=== PATIENT | female | born 1955 | race Caucasian/White ===

== ENCOUNTER 2021-08-14 06:44 | Inpatient (IN) ==
[~2021-08-14 06:44] MED LIST: LACTATED RINGERS 1,000 ML IV SCH; VANCOMYCIN INJ 1,000 MG in SODIUM CHLORIDE 0.9% 250 ML IV ONE
[2021-08-14] MEDS ORDERED: LIDOCAINE 2% 5 ML VIAL ONE (10:10)
[2021-08-14] MEDS ORDERED: propofoL 200 MG/20 ML VIAL IV ONE (10:10)
[2021-08-14] MEDS ORDERED: fentaNYL 100 MCG/2 ML VIAL ONE ×2 (10:11→12:27)
[2021-08-14] MEDS ORDERED: MIDAZOLAM 2 MG/2 ML VIAL ONE (10:11)
[2021-08-14] MEDS ORDERED: HEPARIN 5,000 UNIT/1 ML VIAL ONE (10:21)
[2021-08-14] MEDS ORDERED: HYDROCORTISONE 100 MG VIAL ONE (11:13)
[2021-08-14] MEDS ORDERED: HEPARIN 10,000 UNIT/10 ML VIAL ONE (11:56)
[2021-08-14] MEDS ORDERED: PHENYLEPHRINE 10 MG/1 ML VIAL IV ONE (11:56)
[2021-08-14] MEDS ORDERED: SEVOFLURANE 1 UNIT/15 MINUTE INH ONE ×6 (11:57→13:34)
[2021-08-14] MEDS ORDERED: HYDROmorphone 1 MG/1 ML SYRINGE IV PRN ×2 (13:26→13:37)
[2021-08-14] MEDS ORDERED: ONDANSETRON 4 MG/2 ML VIAL IV PRN ×2 (13:26→13:37)
[2021-08-14] MEDS ORDERED: MEPERIDINE 25 MG/1 ML VIAL IV PRN (13:37)
[2021-08-14] MEDS ORDERED: diphenhydrAMINE 50 MG/1 ML VIAL IV PRN (13:37)
[2021-08-14 13:53] LABS: Hematocrit 36.6 VOL% (35.7-47.0); Hemoglobin 11.8 GM/DL (12.0-16.0)
[2021-08-14] MEDS ORDERED: PNEUMOCOCCAL VACCINE (13 VALENT) 0.5 ML SYRINGE IM ONE (14:40)
[2021-08-14] MEDS: GABAPENTIN 300 MG CAPSULE PO SCH ×2 (14:48→21:13)
[2021-08-14] MEDS: LACTATED RINGERS 1,000 ML IV SCH ×2 (14:48→21:15)
[2021-08-15] MEDS: LACTATED RINGERS 1,000 ML IV SCH (05:21)
[2021-08-15 05:35] LABS: Basophils % 0.4 % (0.0-0.8); Eosinophils # 0.1 10*3/uL (0.0-0.87); Eosinophils % 0.9 % (0.00-10.9); Hematocrit 31.2 VOL% (35.7-47.0); Hemoglobin 9.8 GM/DL (12.0-16.0); Immature Granulocytes % 0.9 %; Immature Granulocytes Absolute 0.07 #; Lymphocytes # 1.3 10*3/uL (1.4-4.0); Lymphocytes % 15.6 % (21.3-54.2); Mean Corpuscular HGB Conc 31.4 GM/DL (32-36); Mean Corpuscular Volume 98.4 FL (87-102); Mean Platelet Volume 9.8 FL (9.6-12.0); Monocytes # 0.6 10*3/uL (0.11-0.8); Monocytes % 7.7 % (1.7-12.7); Neutrophils % 74.5 % (38.7-73.9); Platelet Count 164 T/CUMM (130-400); Red Blood Count 3.17 MC/CUMM (3.8-5.5); Red Cell Distribution Width 14.2 % (9.3-17.3); White Blood Count 8.2 T/CUMM (4-12)
[2021-08-15 06:08] LABS: Lymphocytes 17 % (20-55); Platelet Estimate Normal; Total Cells Counted 100
[2021-08-15 06:10] LABS: Calcium 8.4 MG/DL (8.5-10.1); Osmolality,Calculated 281.3 MOS/KG (273-304); Potassium 3.2 MMOL/L (3.5-5.1)
[2021-08-15 07:27] VITALS: BP 120/59
[2021-08-15] MEDS: GABAPENTIN 300 MG CAPSULE PO SCH (08:30)
[2021-08-15] MEDS ORDERED: CHOLECALCIFEROL 5,000 UNIT TABLET PO SCH (09:00)
[2021-08-15] MEDS ORDERED: ASPIRIN EC 81 MG TABLET PO SCH (09:00)
[2021-08-15] MEDS ORDERED: ROSUVASTATIN 20 MG TABLET PO SCH (09:00)
[2021-08-15] MEDS ORDERED: CLOPIDOGREL 75 MG TABLET PO SCH ×2 (09:00)
[2021-08-15] MEDS ORDERED: TOFACITINIB 11 MG PO SCH (09:00)
[2021-08-15] MEDS ORDERED: lisinopriL 20 MG TABLET PO SCH (09:00)
[2021-08-15] MEDS ORDERED: predniSONE 5 MG TABLET PO SCH (09:00)
[2021-08-15] MEDS ORDERED: ASPIRIN CHEW 81 MG TABLET PO SCH (09:00)
== END 2021-08-15 10:50 | disposition home or self-care (01) | DRG 254 ==
LOC: N.OR 06:44 → N.SDSINP 06:44 → EDSTATUS 10:00 → N.3E 13:26
PROVIDERS: ADMIT Surgery; ATTEND Surgery

== ENCOUNTER 2021-08-25 09:45 | Inpatient (IN) ==
[2021-08-25] MEDS ORDERED: ONDANSETRON 4 MG/2 ML VIAL IV STA (11:46)
[2021-08-25] MEDS ORDERED: MORPHINE 2 MG/1 ML SYRINGE IV STA (11:47)
[2021-08-25] MEDS ORDERED: ENOXAPARIN 60 MG/0.6 ML SYRINGE SUBCUT STA (12:04)
[2021-08-25 12:33] LABS: Basophils % 0.2 % (0.0-0.8); Eosinophils # 0.1 10*3/uL (0.0-0.87); Eosinophils % 0.9 % (0.00-10.9); Hemoglobin 10.6 GM/DL (12.0-16.0); Immature Granulocytes % 1.4 %; Immature Granulocytes Absolute 0.22 #; Lymphocytes # 2.4 10*3/uL (1.4-4.0); Lymphocytes % 15.5 % (21.3-54.2); Mean Corpuscular HGB Conc 32.1 GM/DL (32-36); Mean Corpuscular Volume 95.9 FL (87-102); Mean Platelet Volume 10.6 FL (9.6-12.0); Monocytes # 1.1 10*3/uL (0.11-0.8); NRBC # 0.11 10*3/uL; Platelet Count 200 T/CUMM (130-400); Red Blood Count 3.44 MC/CUMM (3.8-5.5); Red Cell Distribution Width 14.9 % (9.3-17.3); White Blood Count 15.2 T/CUMM (4-12)
[2021-08-25 12:44] LABS: INR 1.2; PT Patient Result 12.6 SECS (10.5-12.0)
[2021-08-25] MEDS ORDERED: HYDROmorphone 1 MG/1 ML SYRINGE IV PRN (13:00)
[2021-08-25] MEDS ORDERED: ACETAMINOPHEN 325 MG TABLET PO PRN (13:00)
[2021-08-25] MEDS ORDERED: ONDANSETRON 4 MG/2 ML VIAL IV PRN (13:00)
[2021-08-25] MEDS ORDERED: oxyCODONE/ACETAMINOPHEN 5-325 MG TABLET PO PRN (13:00)
[2021-08-25] MEDS ORDERED: SODIUM CHLORIDE 0.9% 1,000 ML IV STA (13:05)
[2021-08-25 13:15] LABS: Albumin 2.8 G/DL (3.4-5.0); Bilirubin,Total 0.8 MG/DL (0.20-1.00); Potassium 2.6 MMOL/L (3.5-5.1); Total Protein 7.1 G/DL (6.4-8.2)
[2021-08-25] MEDS ORDERED: POTASSIUM CHLORIDE 20 MEQ TABLET PO STA (13:31)
[2021-08-25] MEDS ORDERED: LACTATED RINGERS 1,000 ML IV SCH (17:00)
[2021-08-25] MEDS: POTASSIUM CHLORIDE INJ 30 MEQ in LACTATED RINGERS 1,000 ML IV SCH (18:00)
[2021-08-25] MEDS: PIPERACILLIN/TAZOBACTAM 3,375 MG in SODIUM CHLORIDE 0.9% 100 ML IV SCH (18:14)
[2021-08-25] MEDS: APIXABAN 5 MG TABLET PO SCH (20:06)
[2021-08-25] MEDS: oxyCODONE/ACETAMINOPHEN 5-325 MG TABLET PO PRN (20:07)
[2021-08-26] MEDS: PIPERACILLIN/TAZOBACTAM 3,375 MG in SODIUM CHLORIDE 0.9% 100 ML IV SCH ×3 (03:21→17:25)
[2021-08-26 05:12] LABS: Basophils # 0.1 10*3/uL (0.0-0.2); Basophils % 0.4 % (0.0-0.8); Eosinophils # 0.1 10*3/uL (0.0-0.87); Hematocrit 30.9 VOL% (35.7-47.0); Hemoglobin 9.5 GM/DL (12.0-16.0); Immature Granulocytes % 1.1 %; Immature Granulocytes Absolute 0.15 #; Lymphocytes # 1.6 10*3/uL (1.4-4.0); Lymphocytes % 11.6 % (21.3-54.2); Mean Corpuscular HGB Conc 30.7 GM/DL (32-36); Mean Platelet Volume 10.3 FL (9.6-12.0); Monocytes # 1.1 10*3/uL (0.11-0.8); NRBC # 0.05 10*3/uL; Neutrophils % 77.9 % (38.7-73.9); Platelet Count 196 T/CUMM (130-400); Red Blood Count 3.12 MC/CUMM (3.8-5.5); Red Cell Distribution Width 15.2 % (9.3-17.3); White Blood Count 13.9 T/CUMM (4-12)
[2021-08-26 05:31] LABS: Calcium 8.6 MG/DL (8.5-10.1); Osmolality,Calculated 277.7 MOS/KG (273-304); Potassium 3.9 MMOL/L (3.5-5.1)
[2021-08-26] MEDS: oxyCODONE/ACETAMINOPHEN 5-325 MG TABLET PO PRN ×4 (06:31→18:33)
[2021-08-26] MEDS: CHOLECALCIFEROL 5,000 UNIT TABLET PO SCH (08:43)
[2021-08-26] MEDS: POTASSIUM CHLORIDE INJ 30 MEQ in LACTATED RINGERS 1,000 ML IV SCH ×2 (08:43→20:19)
[2021-08-26] MEDS: APIXABAN 5 MG TABLET PO SCH ×2 (08:43→20:16)
[2021-08-26] MEDS: predniSONE 5 MG TABLET PO SCH (08:43)
[2021-08-26] MEDS: ASPIRIN EC 81 MG TABLET PO SCH (08:43)
[2021-08-26] MEDS: GABAPENTIN 300 MG CAPSULE PO SCH ×3 (08:43→20:16)
[2021-08-26] MEDS: ROSUVASTATIN 20 MG TABLET PO SCH (08:43)
[2021-08-26] MEDS: PANTOPRAZOLE 40 MG TABLET PO SCH (08:44)
[2021-08-26] MEDS: TOFACITINIB 11 MG PO SCH (08:45)
[2021-08-26] MEDS: HYDROmorphone 2 MG/1 ML VIAL IV PRN ×2 (11:09→20:16)
[2021-08-26] MEDS ORDERED: KETOROLAC 15 MG/1 ML VIAL IV ONE (12:14)
[2021-08-26] MEDS ORDERED: GLUCAGON 1 MG VIAL IM PRN (14:06)
[2021-08-26] MEDS ORDERED: DEXTROSE 10% 250 ML BAG IV PRN (14:06)
[2021-08-26] MEDS: MENTHOL/ZINC OXIDE OINT 71 GM JAR TOP SCH ×2 (15:32→20:18)
[2021-08-26] MEDS: INSULIN LISPRO 100 UNIT/ML SUBCUT SCH ×2 (17:25→20:28)
[2021-08-27] MEDS: PIPERACILLIN/TAZOBACTAM 3,375 MG in SODIUM CHLORIDE 0.9% 100 ML IV SCH ×3 (02:07→17:01)
[2021-08-27] MEDS: POTASSIUM CHLORIDE INJ 30 MEQ in LACTATED RINGERS 1,000 ML IV SCH (02:08)
[2021-08-27] MEDS: HYDROmorphone 2 MG/1 ML VIAL IV PRN ×2 (04:37→21:04)
[2021-08-27 05:58] LABS: Basophils % 0.3 % (0.0-0.8); Eosinophils # 0.1 10*3/uL (0.0-0.87); Eosinophils % 1.2 % (0.00-10.9); Hematocrit 26.4 VOL% (35.7-47.0); Hemoglobin 8.1 GM/DL (12.0-16.0); Immature Granulocytes % 1.1 %; Immature Granulocytes Absolute 0.13 #; Lymphocytes # 1.4 10*3/uL (1.4-4.0); Lymphocytes % 12.3 % (21.3-54.2); Mean Corpuscular HGB Conc 30.7 GM/DL (32-36); Mean Corpuscular Volume 98.9 FL (87-102); Monocytes # 0.9 10*3/uL (0.11-0.8); Monocytes % 7.7 % (1.7-12.7); NRBC # 0.02 10*3/uL; Neutrophils % 77.4 % (38.7-73.9); Platelet Count 197 T/CUMM (130-400); Red Blood Count 2.67 MC/CUMM (3.8-5.5); Red Cell Distribution Width 15.1 % (9.3-17.3); White Blood Count 11.6 T/CUMM (4-12)
[2021-08-27 06:21] LABS: Eosinophils 1 % (0-10); Hypochromia Slight; Lymphocytes 11 % (20-55); Microcytosis Slight; Nucleated Red Blood Cells 1 (0-5); Platelet Estimate Adequate; Total Cells Counted 100
[2021-08-27 06:25] LABS: Albumin 2.2 G/DL (3.4-5.0); Bilirubin,Total 0.6 MG/DL (0.20-1.00); Calcium 8.6 MG/DL (8.5-10.1); Osmolality,Calculated 274.7 MOS/KG (273-304); Potassium 3.7 MMOL/L (3.5-5.1)
[2021-08-27] MEDS: INSULIN LISPRO 100 UNIT/ML SUBCUT SCH ×3 (08:55→16:59)
[2021-08-27] MEDS: oxyCODONE/ACETAMINOPHEN 5-325 MG TABLET PO PRN ×4 (09:48→23:33)
[2021-08-27] MEDS: predniSONE 5 MG TABLET PO SCH (09:48)
[2021-08-27] MEDS: GABAPENTIN 300 MG CAPSULE PO SCH ×3 (09:48→21:05)
[2021-08-27] MEDS: ROSUVASTATIN 20 MG TABLET PO SCH (09:48)
[2021-08-27] MEDS: ASPIRIN EC 81 MG TABLET PO SCH (09:48)
[2021-08-27] MEDS: PANTOPRAZOLE 40 MG TABLET PO SCH (09:48)
[2021-08-27] MEDS: CHOLECALCIFEROL 5,000 UNIT TABLET PO SCH (09:49)
[2021-08-27] MEDS: MENTHOL/ZINC OXIDE OINT 71 GM JAR TOP SCH ×2 (09:49→21:05)
[2021-08-27] MEDS: APIXABAN 5 MG TABLET PO SCH (09:49)
[2021-08-27] MEDS: TOFACITINIB 11 MG PO SCH (09:50)
[2021-08-27] MEDS: NICOTINE 21 MG/24 HR PATCH TRANSDERM SCH (10:48)
[2021-08-27] MEDS ORDERED: INSULIN GLARGINE 100 UNIT/ML SUBCUT SCH (21:00)
[2021-08-27] MEDS: ENOXAPARIN 60 MG/0.6 ML SYRINGE SUBCUT SCH (21:05)
[2021-08-28] MEDS: PIPERACILLIN/TAZOBACTAM 3,375 MG in SODIUM CHLORIDE 0.9% 100 ML IV SCH ×3 (01:55→17:13)
[2021-08-28] MEDS: INSULIN LISPRO 100 UNIT/ML SUBCUT SCH ×5 (05:55→21:32)
[2021-08-28] MEDS: CHOLECALCIFEROL 5,000 UNIT TABLET PO SCH (08:46)
[2021-08-28] MEDS: oxyCODONE/ACETAMINOPHEN 5-325 MG TABLET PO PRN ×4 (08:46→21:30)
[2021-08-28] MEDS: ASPIRIN EC 81 MG TABLET PO SCH (08:46)
[2021-08-28] MEDS: PANTOPRAZOLE 40 MG TABLET PO SCH (08:46)
[2021-08-28] MEDS: GABAPENTIN 300 MG CAPSULE PO SCH ×3 (08:46→22:08)
[2021-08-28] MEDS: MENTHOL/ZINC OXIDE OINT 71 GM JAR TOP SCH ×2 (08:47→22:08)
[2021-08-28] MEDS: ENOXAPARIN 60 MG/0.6 ML SYRINGE SUBCUT SCH ×2 (08:47→22:08)
[2021-08-28] MEDS: predniSONE 5 MG TABLET PO SCH (08:47)
[2021-08-28] MEDS: ROSUVASTATIN 20 MG TABLET PO SCH (08:47)
[2021-08-28] MEDS: NICOTINE 21 MG/24 HR PATCH TRANSDERM SCH (08:48)
[2021-08-28 08:54] LABS: Calcium 8.4 MG/DL (8.5-10.1); Osmolality,Calculated 274.8 MOS/KG (273-304); Potassium 3.8 MMOL/L (3.5-5.1)
[2021-08-28] MEDS: TOFACITINIB 11 MG PO SCH (09:26)
[2021-08-29] MEDS: oxyCODONE/ACETAMINOPHEN 5-325 MG TABLET PO PRN (02:15)
[2021-08-29] MEDS: PIPERACILLIN/TAZOBACTAM 3,375 MG in SODIUM CHLORIDE 0.9% 100 ML IV SCH ×3 (02:18→20:30)
[2021-08-29] MEDS ORDERED: fentaNYL 100 MCG/2 ML VIAL ONE ×2 (07:50→09:22)
[2021-08-29] MEDS ORDERED: LIDOCAINE 2% 5 ML VIAL ONE (07:50)
[2021-08-29] MEDS ORDERED: propofoL 200 MG/20 ML VIAL IV ONE (07:50)
[2021-08-29] MEDS ORDERED: ONDANSETRON 4 MG/2 ML VIAL ONE (07:50)
[2021-08-29] MEDS ORDERED: MIDAZOLAM 2 MG/2 ML VIAL ONE (07:51)
[2021-08-29 08:27] LABS: Basophils % 0.3 % (0.0-0.8); Eosinophils # 0.1 10*3/uL (0.0-0.87); Eosinophils % 1.3 % (0.00-10.9); Hematocrit 23.4 VOL% (35.7-47.0); Hemoglobin 7.3 GM/DL (12.0-16.0); Immature Granulocytes % 1.2 %; Immature Granulocytes Absolute 0.09 #; Lymphocytes # 1.4 10*3/uL (1.4-4.0); Lymphocytes % 17.6 % (21.3-54.2); Mean Corpuscular HGB Conc 31.2 GM/DL (32-36); Mean Corpuscular Volume 98.7 FL (87-102); Mean Platelet Volume 9.6 FL (9.6-12.0); Monocytes # 0.7 10*3/uL (0.11-0.8); Monocytes % 8.5 % (1.7-12.7); NRBC # 0.03 10*3/uL; Neutrophils % 71.1 % (38.7-73.9); Platelet Count 261 T/CUMM (130-400); Red Blood Count 2.37 MC/CUMM (3.8-5.5); Red Cell Distribution Width 15.3 % (9.3-17.3); White Blood Count 7.7 T/CUMM (4-12)
[2021-08-29] MEDS ORDERED: LACTATED RINGERS 1,000 ML IV SCH (08:30)
[2021-08-29] MEDS ORDERED: VANCOMYCIN 500 MG VIAL ONE (08:38)
[2021-08-29] MEDS ORDERED: BUPIVACAINE 0.5% 50 ML VIAL ONE (08:38)
[2021-08-29 08:47] LABS: Calcium 8.7 MG/DL (8.5-10.1); Osmolality,Calculated 280.3 MOS/KG (273-304); Potassium 3.8 MMOL/L (3.5-5.1)
[2021-08-29] MEDS ORDERED: SEVOFLURANE 1 UNIT/15 MINUTE INH ONE (10:09)
[2021-08-29] MEDS ORDERED: KETOROLAC 30 MG/1 ML VIAL ONE (10:10)
[2021-08-29] MEDS ORDERED: HYDROCORTISONE 100 MG VIAL ONE (10:11)
[2021-08-29] MEDS ORDERED: HYDROmorphone 1 MG/1 ML SYRINGE IV PRN (10:11)
[2021-08-29] MEDS: MENTHOL/ZINC OXIDE OINT 71 GM JAR TOP SCH ×2 (10:13→20:31)
[2021-08-29] MEDS: INSULIN LISPRO 100 UNIT/ML SUBCUT SCH ×4 (10:13→20:24)
[2021-08-29] MEDS: GABAPENTIN 300 MG CAPSULE PO SCH ×3 (10:13→20:23)
[2021-08-29] MEDS ORDERED: ONDANSETRON 4 MG/2 ML VIAL IV PRN (10:39)
[2021-08-29] MEDS: HYDROmorphone 1 MG/1 ML SYRINGE IV PRN ×3 (10:43→20:29)
[2021-08-29 11:49] LABS: Basophils % 0.4 % (0.0-0.8); Eosinophils # 0.1 10*3/uL (0.0-0.87); Eosinophils % 0.8 % (0.00-10.9); Hematocrit 25.2 VOL% (35.7-47.0); Hemoglobin 7.8 GM/DL (12.0-16.0); Immature Granulocytes % 1.4 %; Immature Granulocytes Absolute 0.11 #; Lymphocytes # 0.8 10*3/uL (1.4-4.0); Mean Corpuscular Volume 99.2 FL (87-102); Mean Platelet Volume 9.5 FL (9.6-12.0); Monocytes # 0.6 10*3/uL (0.11-0.8); Monocytes % 7.1 % (1.7-12.7); NRBC # 0.04 10*3/uL; Neutrophils % 80.3 % (38.7-73.9); Platelet Count 259 T/CUMM (130-400); Red Blood Count 2.54 MC/CUMM (3.8-5.5); Red Cell Distribution Width 15.1 % (9.3-17.3); White Blood Count 7.7 T/CUMM (4-12)
[2021-08-29 12:26] LABS: Band Neutrophils 5 % (0-10); Eosinophils 1 % (0-10); Lymphocytes 10 % (20-55); Platelet Estimate Adequate; Total Cells Counted 100
[2021-08-29] MEDS: ROSUVASTATIN 20 MG TABLET PO SCH (12:53)
[2021-08-29] MEDS: ASPIRIN EC 81 MG TABLET PO SCH (12:53)
[2021-08-29] MEDS: predniSONE 5 MG TABLET PO SCH (12:53)
[2021-08-29] MEDS: NICOTINE 21 MG/24 HR PATCH TRANSDERM SCH (12:53)
[2021-08-29] MEDS: PANTOPRAZOLE 40 MG TABLET PO SCH (12:54)
[2021-08-29] MEDS: CHOLECALCIFEROL 5,000 UNIT TABLET PO SCH (12:54)
[2021-08-29] MEDS: TOFACITINIB 11 MG PO SCH (12:54)
[2021-08-29] MEDS: KETOROLAC 10 MG TABLET PO SCH ×3 (13:04→23:33)
[2021-08-29] MEDS: INSULIN GLARGINE 100 UNIT/ML SUBCUT SCH (18:03)
[2021-08-30 05:21] LABS: Basophils % 0.1 % (0.0-0.8); Eosinophils # 0.1 10*3/uL (0.0-0.87); Eosinophils % 0.7 % (0.00-10.9); Hematocrit 19.7 VOL% (35.7-47.0); Immature Granulocytes % 1.3 %; Immature Granulocytes Absolute 0.09 #; Lymphocytes # 1.5 10*3/uL (1.4-4.0); Lymphocytes % 20.4 % (21.3-54.2); Mean Corpuscular HGB Conc 30.5 GM/DL (32-36); Mean Platelet Volume 9.5 FL (9.6-12.0); Monocytes # 0.6 10*3/uL (0.11-0.8); Monocytes % 7.7 % (1.7-12.7); NRBC # 0.05 10*3/uL; Neutrophils % 69.8 % (38.7-73.9); Platelet Count 245 T/CUMM (130-400); Red Blood Count 1.97 MC/CUMM (3.8-5.5); Red Cell Distribution Width 15.3 % (9.3-17.3); White Blood Count 7.1 T/CUMM (4-12)
[2021-08-30 05:35] LABS: Calcium 8.1 MG/DL (8.5-10.1); Osmolality,Calculated 278.3 MOS/KG (273-304); Potassium 3.6 MMOL/L (3.5-5.1)
[2021-08-30] MEDS: PIPERACILLIN/TAZOBACTAM 3,375 MG in SODIUM CHLORIDE 0.9% 100 ML IV SCH ×3 (05:35→21:20)
[2021-08-30] MEDS: KETOROLAC 10 MG TABLET PO SCH ×4 (05:35→23:37)
[2021-08-30 05:45] LABS: Hypochromia 2+; Platelet Estimate Normal
[2021-08-30] MEDS ORDERED: SODIUM CHLORIDE 0.9% 1,000 ML IV PRN (05:49)
[2021-08-30] MEDS: INSULIN LISPRO 100 UNIT/ML SUBCUT SCH ×4 (07:17→21:17)
[2021-08-30] MEDS: HYDROmorphone 1 MG/1 ML SYRINGE IV PRN ×2 (08:19→21:15)
[2021-08-30] MEDS: predniSONE 5 MG TABLET PO SCH (09:12)
[2021-08-30] MEDS: ENOXAPARIN 60 MG/0.6 ML SYRINGE SUBCUT SCH (09:12)
[2021-08-30] MEDS: MENTHOL/ZINC OXIDE OINT 71 GM JAR TOP SCH ×2 (09:13→21:16)
[2021-08-30] MEDS: INSULIN GLARGINE 100 UNIT/ML SUBCUT SCH (09:13)
[2021-08-30] MEDS: NICOTINE 21 MG/24 HR PATCH TRANSDERM SCH (09:13)
[2021-08-30] MEDS: ROSUVASTATIN 20 MG TABLET PO SCH (09:13)
[2021-08-30] MEDS: CHOLECALCIFEROL 5,000 UNIT TABLET PO SCH (09:13)
[2021-08-30] MEDS: ASPIRIN EC 81 MG TABLET PO SCH (09:13)
[2021-08-30] MEDS: lisinopriL 20 MG TABLET PO SCH (09:13)
[2021-08-30] MEDS: PANTOPRAZOLE 40 MG TABLET PO SCH ×2 (09:13→21:11)
[2021-08-30] MEDS: GABAPENTIN 300 MG CAPSULE PO SCH ×3 (09:13→21:11)
[2021-08-30] MEDS: oxyCODONE/ACETAMINOPHEN 5-325 MG TABLET PO PRN ×2 (10:54→16:42)
[2021-08-30 11:43] LABS: Ferritin 999.9 ng/mL (8-252)
[2021-08-30 18:34] LABS: Basophils % 0.2 % (0.0-0.8); Eosinophils # 0.1 10*3/uL (0.0-0.87); Eosinophils % 0.6 % (0.00-10.9); Hematocrit 30.1 VOL% (35.7-47.0); Hemoglobin 9.4 GM/DL (12.0-16.0); Immature Granulocytes % 2.9 %; Immature Granulocytes Absolute 0.26 #; Lymphocytes # 1.7 10*3/uL (1.4-4.0); Lymphocytes % 19.3 % (21.3-54.2); Mean Corpuscular HGB Conc 31.2 GM/DL (32-36); Mean Corpuscular Volume 97.7 FL (87-102); Mean Platelet Volume 9.3 FL (9.6-12.0); Monocytes # 0.7 10*3/uL (0.11-0.8); Monocytes % 8.2 % (1.7-12.7); NRBC # 0.09 10*3/uL; Neutrophils % 68.8 % (38.7-73.9); Platelet Count 256 T/CUMM (130-400); Red Blood Count 3.08 MC/CUMM (3.8-5.5); Red Cell Distribution Width 16.8 % (9.3-17.3); White Blood Count 8.9 T/CUMM (4-12)
[2021-08-30] MEDS: APIXABAN 5 MG TABLET PO SCH (21:11)
[2021-08-31] MEDS: HYDROmorphone 1 MG/1 ML SYRINGE IV PRN ×3 (00:46→22:40)
[2021-08-31] MEDS: oxyCODONE/ACETAMINOPHEN 5-325 MG TABLET PO PRN ×3 (04:25→16:33)
[2021-08-31 05:16] LABS: Basophils % 0.4 % (0.0-0.8); Eosinophils # 0.1 10*3/uL (0.0-0.87); Eosinophils % 1.4 % (0.00-10.9); Hemoglobin 9.8 GM/DL (12.0-16.0); Immature Granulocytes % 2.1 %; Immature Granulocytes Absolute 0.18 #; Lymphocytes # 1.8 10*3/uL (1.4-4.0); Mean Corpuscular HGB Conc 31.6 GM/DL (32-36); Mean Platelet Volume 9.6 FL (9.6-12.0); Monocytes # 0.6 10*3/uL (0.11-0.8); Monocytes % 7.3 % (1.7-12.7); NRBC # 0.09 10*3/uL; Neutrophils % 67.8 % (38.7-73.9); Platelet Count 272 T/CUMM (130-400); Red Blood Count 3.23 MC/CUMM (3.8-5.5); Red Cell Distribution Width 17.1 % (9.3-17.3); White Blood Count 8.5 T/CUMM (4-12)
[2021-08-31] MEDS: PIPERACILLIN/TAZOBACTAM 3,375 MG in SODIUM CHLORIDE 0.9% 100 ML IV SCH ×2 (05:16→16:19)
[2021-08-31 05:33] LABS: Calcium 8.8 MG/DL (8.5-10.1); Osmolality,Calculated 285.8 MOS/KG (273-304); Potassium 4.2 MMOL/L (3.5-5.1)
[2021-08-31] MEDS: KETOROLAC 10 MG TABLET PO SCH ×3 (05:56→17:41)
[2021-08-31] MEDS: NICOTINE 21 MG/24 HR PATCH TRANSDERM SCH (09:08)
[2021-08-31] MEDS: GABAPENTIN 300 MG CAPSULE PO SCH ×3 (09:09→21:05)
[2021-08-31] MEDS: predniSONE 5 MG TABLET PO SCH (09:09)
[2021-08-31] MEDS: ROSUVASTATIN 20 MG TABLET PO SCH (09:09)
[2021-08-31] MEDS: CHOLECALCIFEROL 5,000 UNIT TABLET PO SCH (09:09)
[2021-08-31] MEDS: PANTOPRAZOLE 40 MG TABLET PO SCH ×2 (09:09→21:05)
[2021-08-31] MEDS: APIXABAN 5 MG TABLET PO SCH ×2 (09:09→21:05)
[2021-08-31] MEDS: lisinopriL 20 MG TABLET PO SCH (09:09)
[2021-08-31] MEDS: INSULIN LISPRO 100 UNIT/ML SUBCUT SCH ×4 (09:10→21:11)
[2021-08-31] MEDS: LINACLOTIDE 145 MCG CAPSULE PO SCH (09:10)
[2021-08-31] MEDS: ASPIRIN EC 81 MG TABLET PO SCH (09:10)
[2021-08-31] MEDS: MENTHOL/ZINC OXIDE OINT 71 GM JAR TOP SCH ×2 (09:14→21:07)
[2021-08-31] MEDS: INSULIN GLARGINE 100 UNIT/ML SUBCUT SCH (09:14)
[2021-08-31] MEDS: VANCOMYCIN INJ 1,000 MG in SODIUM CHLORIDE 0.9% 250 ML IV SCH (15:15)
[2021-09-01] MEDS: KETOROLAC 10 MG TABLET PO SCH ×4 (00:08→17:21)
[2021-09-01] MEDS: oxyCODONE/ACETAMINOPHEN 5-325 MG TABLET PO PRN ×4 (00:09→23:45)
[2021-09-01] MEDS: PIPERACILLIN/TAZOBACTAM 3,375 MG in SODIUM CHLORIDE 0.9% 100 ML IV SCH ×2 (00:09→08:26)
[2021-09-01] MEDS: VANCOMYCIN INJ 1,000 MG in SODIUM CHLORIDE 0.9% 250 ML IV SCH ×2 (04:29→14:29)
[2021-09-01] MEDS: HYDROmorphone 1 MG/1 ML SYRINGE IV PRN ×2 (05:15→20:38)
[2021-09-01 06:10] LABS: Basophils % 0.4 % (0.0-0.8); Eosinophils # 0.1 10*3/uL (0.0-0.87); Eosinophils % 1.3 % (0.00-10.9); Hematocrit 30.7 VOL% (35.7-47.0); Hemoglobin 9.7 GM/DL (12.0-16.0); Immature Granulocytes Absolute 0.17 #; Lymphocytes # 0.9 10*3/uL (1.4-4.0); Lymphocytes % 11.2 % (21.3-54.2); Mean Corpuscular HGB Conc 31.6 GM/DL (32-36); Mean Corpuscular Volume 97.5 FL (87-102); Mean Platelet Volume 9.3 FL (9.6-12.0); Monocytes # 0.8 10*3/uL (0.11-0.8); Monocytes % 9.1 % (1.7-12.7); NRBC # 0.11 10*3/uL; Platelet Count 246 T/CUMM (130-400); Red Blood Count 3.15 MC/CUMM (3.8-5.5); Red Cell Distribution Width 17.2 % (9.3-17.3); White Blood Count 8.4 T/CUMM (4-12)
[2021-09-01] MEDS: INSULIN LISPRO 100 UNIT/ML SUBCUT SCH ×3 (07:32→17:22)
[2021-09-01] MEDS: LINACLOTIDE 145 MCG CAPSULE PO SCH (08:24)
[2021-09-01] MEDS: NICOTINE 21 MG/24 HR PATCH TRANSDERM SCH (08:24)
[2021-09-01] MEDS: GABAPENTIN 300 MG CAPSULE PO SCH ×3 (08:25→23:44)
[2021-09-01] MEDS: APIXABAN 5 MG TABLET PO SCH ×2 (08:25→23:44)
[2021-09-01] MEDS: predniSONE 5 MG TABLET PO SCH (08:25)
[2021-09-01] MEDS: lisinopriL 20 MG TABLET PO SCH (08:25)
[2021-09-01] MEDS: CHOLECALCIFEROL 5,000 UNIT TABLET PO SCH (08:25)
[2021-09-01] MEDS: ROSUVASTATIN 20 MG TABLET PO SCH (08:25)
[2021-09-01] MEDS: PANTOPRAZOLE 40 MG TABLET PO SCH ×2 (08:25→23:44)
[2021-09-01] MEDS: MENTHOL/ZINC OXIDE OINT 71 GM JAR TOP SCH ×2 (08:26→23:45)
[2021-09-01] MEDS: INSULIN GLARGINE 100 UNIT/ML SUBCUT SCH (08:27)
[2021-09-01] MEDS: ASPIRIN EC 81 MG TABLET PO SCH (08:36)
[2021-09-02] MEDS: INSULIN LISPRO 100 UNIT/ML SUBCUT SCH ×2 (01:18→09:45)
[2021-09-02] MEDS: KETOROLAC 10 MG TABLET PO SCH ×2 (01:20→06:05)
[2021-09-02] MEDS: VANCOMYCIN INJ 1,000 MG in SODIUM CHLORIDE 0.9% 250 ML IV SCH (03:45)
[2021-09-02 06:25] LABS: Basophils % 0.4 % (0.0-0.8); Eosinophils # 0.1 10*3/uL (0.0-0.87); Eosinophils % 1.6 % (0.00-10.9); Hematocrit 31.1 VOL% (35.7-47.0); Hemoglobin 9.7 GM/DL (12.0-16.0); Immature Granulocytes % 1.6 %; Immature Granulocytes Absolute 0.11 #; Lymphocytes # 0.9 10*3/uL (1.4-4.0); Lymphocytes % 13.1 % (21.3-54.2); Mean Corpuscular HGB Conc 31.2 GM/DL (32-36); Mean Corpuscular Volume 98.4 FL (87-102); Mean Platelet Volume 9.5 FL (9.6-12.0); Monocytes # 0.6 10*3/uL (0.11-0.8); Monocytes % 8.6 % (1.7-12.7); NRBC # 0.05 10*3/uL; Neutrophils % 74.7 % (38.7-73.9); Platelet Count 244 T/CUMM (130-400); Red Blood Count 3.16 MC/CUMM (3.8-5.5); Red Cell Distribution Width 17.4 % (9.3-17.3); White Blood Count 7.1 T/CUMM (4-12)
[2021-09-02 07:01] LABS: Calcium 8.8 MG/DL (8.5-10.1); Osmolality,Calculated 281.1 MOS/KG (273-304); Potassium 3.4 MMOL/L (3.5-5.1)
[2021-09-02] MEDS ORDERED: POTASSIUM CHLORIDE 20 MEQ TABLET PO ONE (08:00)
[2021-09-02 08:05] VITALS: BP 138/57
[2021-09-02] MEDS: NICOTINE 21 MG/24 HR PATCH TRANSDERM SCH (09:37)
[2021-09-02] MEDS: INSULIN GLARGINE 100 UNIT/ML SUBCUT SCH (09:38)
[2021-09-02] MEDS: ROSUVASTATIN 20 MG TABLET PO SCH (09:39)
[2021-09-02] MEDS: predniSONE 5 MG TABLET PO SCH (09:39)
[2021-09-02] MEDS: APIXABAN 5 MG TABLET PO SCH (09:39)
[2021-09-02] MEDS: lisinopriL 20 MG TABLET PO SCH (09:39)
[2021-09-02] MEDS: CHOLECALCIFEROL 5,000 UNIT TABLET PO SCH (09:39)
[2021-09-02] MEDS: GABAPENTIN 300 MG CAPSULE PO SCH (09:40)
[2021-09-02] MEDS: MENTHOL/ZINC OXIDE OINT 71 GM JAR TOP SCH (09:40)
[2021-09-02] MEDS: ASPIRIN EC 81 MG TABLET PO SCH (09:40)
[2021-09-02] MEDS: oxyCODONE/ACETAMINOPHEN 5-325 MG TABLET PO PRN (09:40)
[2021-09-02] MEDS: PANTOPRAZOLE 40 MG TABLET PO SCH (09:40)
[2021-09-02] MEDS: LINACLOTIDE 145 MCG CAPSULE PO SCH (09:42)
[2021-09-03] MEDS ORDERED: MULTIVITAMIN (INTRINSIC) CAPSULE PO SCH (09:00)
== END 2021-09-02 12:00 | disposition home health service (06) | DRG 240 ==
LOC: N.ED 09:45 → N.EDINP 12:59 → N.3E 14:57
PROVIDERS: ADMIT Surgery; ATTEND Surgery

== ENCOUNTER 2021-09-05 10:27 | Inpatient (IN) ==
[2021-09-05] MEDS ORDERED: LACTATED RINGERS 1,000 ML IV ONE (11:24)
[2021-09-05 11:25] LABS: Basophils % 0.4 % (0.0-0.8); Eosinophils % 0.5 % (0.00-10.9); Hematocrit 27.2 VOL% (35.7-47.0); Hemoglobin 8.2 GM/DL (12.0-16.0); Immature Granulocytes % 1.1 %; Immature Granulocytes Absolute 0.09 #; Lymphocytes # 1.2 10*3/uL (1.4-4.0); Lymphocytes % 14.2 % (21.3-54.2); Mean Corpuscular HGB Conc 30.1 GM/DL (32-36); Mean Corpuscular Volume 101.5 FL (87-102); Mean Platelet Volume 9.7 FL (9.6-12.0); Monocytes # 0.8 10*3/uL (0.11-0.8); Monocytes % 9.3 % (1.7-12.7); NRBC # 0.03 10*3/uL; Neutrophils % 74.5 % (38.7-73.9); Platelet Count 253 T/CUMM (130-400); Red Blood Count 2.68 MC/CUMM (3.8-5.5); White Blood Count 8.5 T/CUMM (4-12)
[2021-09-05 11:33] LABS: INR 1.2; PT Patient Result 13.5 SECS (10.5-12.0)
[2021-09-05 11:47] LABS: Albumin 2.3 G/DL (3.4-5.0); Bilirubin,Total 0.5 MG/DL (0.20-1.00); Calcium 8.9 MG/DL (8.5-10.1); Osmolality,Calculated 286.4 MOS/KG (273-304); Potassium 3.8 MMOL/L (3.5-5.1)
[2021-09-05] MEDS ORDERED: PANTOPRAZOLE 40 MG VIAL IV STA ×2 (12:22→13:15)
[2021-09-05] MEDS ORDERED: GLUCAGON 1 MG VIAL IM PRN (12:27)
[2021-09-05] MEDS ORDERED: ONDANSETRON 4 MG/2 ML VIAL IV PRN (12:44)
[2021-09-05] MEDS ORDERED: DEXTROSE 10% 250 ML BAG IV PRN (12:55)
[2021-09-05] MEDS ORDERED: ACETAMINOPHEN 325 MG TABLET PO PRN (13:01)
[2021-09-05] MEDS ORDERED: oxyCODONE/ACETAMINOPHEN 5-325 MG TABLET PO PRN (13:03)
[2021-09-05] MEDS: LACTATED RINGERS 1,000 ML IV SCH (13:35)
[2021-09-05] MEDS: GABAPENTIN 300 MG CAPSULE PO SCH ×2 (15:12→20:49)
[2021-09-05] MEDS: INSULIN LISPRO 100 UNIT/ML SUBCUT SCH ×2 (16:50→20:49)
[2021-09-05] MEDS ORDERED: PNEUMOCOCCAL VACCINE (13 VALENT) 0.5 ML SYRINGE IM ONE (18:00)
[2021-09-05 18:02] LABS: Hematocrit 25.3 VOL% (35.7-47.0); Hemoglobin 7.6 GM/DL (12.0-16.0)
[2021-09-05] MEDS: PANTOPRAZOLE 40 MG VIAL IV SCH (20:50)
[2021-09-05] MEDS: oxyCODONE/ACETAMINOPHEN 5-325 MG TABLET PO PRN (21:15)
[2021-09-05 21:33] LABS: Hematocrit 25.8 VOL% (35.7-47.0); Hemoglobin 7.9 GM/DL (12.0-16.0)
[2021-09-05 23:08] LABS: Hematocrit 23.2 VOL% (35.7-47.0); Hemoglobin 7.3 GM/DL (12.0-16.0)
[2021-09-06 00:24] LABS: Bacteria,Urine Occasional /HPF (Few); Bilirubin,Urine Negative (Negative); Blood, Urine Negative (Negative); Glucose,Urine (UA) Negative (Negative); Ketones,Urine Negative (Negative); Mucus,Urine Occasional /LPF (Occasional); Nitrite,Urine Negative (Negative); Protein,Urine Negative (Negative); RBC,Urine 1 /HPF (0-4); Squamous Epithelial Cell,Urine Occasional /HPF (0-10); Urine Appearance Clear (Clear); Urine Color Yellow (Yellow); Urine pH 5.5 (4.5-8.0)
[2021-09-06] MEDS: oxyCODONE/ACETAMINOPHEN 5-325 MG TABLET PO PRN ×5 (02:36→21:11)
[2021-09-06] MEDS: LACTATED RINGERS 1,000 ML IV SCH ×3 (04:04→22:31)
[2021-09-06 05:36] LABS: Basophils % 0.6 % (0.0-0.8); Eosinophils # 0.1 10*3/uL (0.0-0.87); Hematocrit 21.9 VOL% (35.7-47.0); Hemoglobin 6.7 GM/DL (12.0-16.0); Immature Granulocytes Absolute 0.05 #; Lymphocytes # 0.9 10*3/uL (1.4-4.0); Mean Corpuscular HGB Conc 30.6 GM/DL (32-36); Mean Corpuscular Volume 99.5 FL (87-102); Mean Platelet Volume 9.9 FL (9.6-12.0); Monocytes # 0.5 10*3/uL (0.11-0.8); Monocytes % 9.3 % (1.7-12.7); NRBC # 0.05 10*3/uL; Neutrophils % 69.1 % (38.7-73.9); Platelet Count 180 T/CUMM (130-400); White Blood Count 5.1 T/CUMM (4-12)
[2021-09-06 05:55] LABS: Calcium 8.6 MG/DL (8.5-10.1); Osmolality,Calculated 286.8 MOS/KG (273-304); Potassium 3.6 MMOL/L (3.5-5.1)
[2021-09-06] MEDS: INSULIN LISPRO 100 UNIT/ML SUBCUT SCH ×4 (07:26→22:19)
[2021-09-06] MEDS ORDERED: LISINOPRIL 30 MG PO SCH (09:00)
[2021-09-06] MEDS: CHOLECALCIFEROL 5,000 UNIT TABLET PO SCH (09:52)
[2021-09-06] MEDS: GABAPENTIN 300 MG CAPSULE PO SCH ×3 (09:52→22:25)
[2021-09-06] MEDS: PANTOPRAZOLE 40 MG VIAL IV SCH ×4 (09:55→22:33)
[2021-09-06] MEDS: ROSUVASTATIN 20 MG TABLET PO SCH (21:46)
[2021-09-07] MEDS: oxyCODONE/ACETAMINOPHEN 5-325 MG TABLET PO PRN ×4 (01:33→20:25)
[2021-09-07 05:15] LABS: Basophils % 0.4 % (0.0-0.8); Eosinophils # 0.1 10*3/uL (0.0-0.87); Eosinophils % 1.7 % (0.00-10.9); Hemoglobin 6.6 GM/DL (12.0-16.0); Immature Granulocytes % 0.9 %; Immature Granulocytes Absolute 0.04 #; Lymphocytes # 0.8 10*3/uL (1.4-4.0); Lymphocytes % 18.2 % (21.3-54.2); Mean Corpuscular Volume 101.4 FL (87-102); Mean Platelet Volume 9.7 FL (9.6-12.0); Monocytes # 0.4 10*3/uL (0.11-0.8); Monocytes % 7.8 % (1.7-12.7); NRBC # 0.03 10*3/uL; Platelet Count 149 T/CUMM (130-400); Red Blood Count 2.17 MC/CUMM (3.8-5.5); Red Cell Distribution Width 18.7 % (9.3-17.3); White Blood Count 4.6 T/CUMM (4-12)
[2021-09-07 05:36] LABS: Calcium 8.4 MG/DL (8.5-10.1); Potassium 3.4 MMOL/L (3.5-5.1)
[2021-09-07] MEDS: LACTATED RINGERS 1,000 ML IV SCH ×3 (07:10→17:36)
[2021-09-07] MEDS: INSULIN LISPRO 100 UNIT/ML SUBCUT SCH ×4 (08:00→20:26)
[2021-09-07] MEDS: GABAPENTIN 300 MG CAPSULE PO SCH ×3 (08:50→20:25)
[2021-09-07] MEDS: CHOLECALCIFEROL 5,000 UNIT TABLET PO SCH (08:50)
[2021-09-07] MEDS: PANTOPRAZOLE 40 MG VIAL IV SCH ×4 (08:53→22:59)
[2021-09-07] MEDS ORDERED: SODIUM CHLORIDE 0.9% 1,000 ML IV PRN (11:43)
[2021-09-07] MEDS: ROSUVASTATIN 20 MG TABLET PO SCH (20:24)
[2021-09-08] MEDS: oxyCODONE/ACETAMINOPHEN 5-325 MG TABLET PO PRN ×3 (01:22→20:22)
[2021-09-08] MEDS: LACTATED RINGERS 1,000 ML IV SCH ×2 (02:57→17:04)
[2021-09-08 06:19] LABS: Basophils % 0.4 % (0.0-0.8); Eosinophils # 0.2 10*3/uL (0.0-0.87); Eosinophils % 2.9 % (0.00-10.9); Hematocrit 30.7 VOL% (35.7-47.0); Hemoglobin 9.8 GM/DL (12.0-16.0); Immature Granulocytes % 1.3 %; Immature Granulocytes Absolute 0.07 #; Lymphocytes # 0.9 10*3/uL (1.4-4.0); Lymphocytes % 17.2 % (21.3-54.2); Mean Corpuscular HGB Conc 31.9 GM/DL (32-36); Mean Platelet Volume 9.9 FL (9.6-12.0); Monocytes # 0.5 10*3/uL (0.11-0.8); Monocytes % 9.5 % (1.7-12.7); NRBC # 0.05 10*3/uL; Neutrophils % 68.7 % (38.7-73.9); Platelet Count 128 T/CUMM (130-400); Red Blood Count 3.23 MC/CUMM (3.8-5.5); Red Cell Distribution Width 18.8 % (9.3-17.3); White Blood Count 5.2 T/CUMM (4-12)
[2021-09-08 06:22] LABS: Calcium 8.7 MG/DL (8.5-10.1); Potassium 3.5 MMOL/L (3.5-5.1)
[2021-09-08 06:27] LABS: Folate 5.99 NG/ML (5.38-24.0); Vitamin B12 598 PG/ML (211-911)
[2021-09-08 06:41] LABS: % Iron Saturation 32.3 % (18-50); Ferritin 733.4 ng/mL (8-252)
[2021-09-08 07:09] LABS: Sedimentation Rate-Westergren 45 MM/HR (0-30)
[2021-09-08] MEDS: PANTOPRAZOLE 40 MG VIAL IV SCH ×4 (08:54→22:10)
[2021-09-08] MEDS: CHOLECALCIFEROL 5,000 UNIT TABLET PO SCH (08:54)
[2021-09-08] MEDS: GABAPENTIN 300 MG CAPSULE PO SCH ×3 (08:54→20:21)
[2021-09-08] MEDS: INSULIN LISPRO 100 UNIT/ML SUBCUT SCH ×4 (08:55→22:10)
[2021-09-08] MEDS: ROSUVASTATIN 20 MG TABLET PO SCH (20:21)
[2021-09-09 05:04] LABS: Basophils % 0.3 % (0.0-0.8); Eosinophils # 0.1 10*3/uL (0.0-0.87); Eosinophils % 1.7 % (0.00-10.9); Hematocrit 31.2 VOL% (35.7-47.0); Hemoglobin 9.9 GM/DL (12.0-16.0); Immature Granulocytes % 0.9 %; Immature Granulocytes Absolute 0.05 #; Lymphocytes # 0.9 10*3/uL (1.4-4.0); Lymphocytes % 15.2 % (21.3-54.2); Mean Corpuscular HGB Conc 31.7 GM/DL (32-36); Mean Corpuscular Volume 94.5 FL (87-102); Monocytes # 0.6 10*3/uL (0.11-0.8); Monocytes % 10.7 % (1.7-12.7); NRBC # 0.02 10*3/uL; Neutrophils % 71.2 % (38.7-73.9); Platelet Count 127 T/CUMM (130-400); Red Cell Distribution Width 19.4 % (9.3-17.3); White Blood Count 5.9 T/CUMM (4-12)
[2021-09-09 05:23] LABS: Calcium 8.7 MG/DL (8.5-10.1); Osmolality,Calculated 277.4 MOS/KG (273-304); Potassium 3.3 MMOL/L (3.5-5.1)
[2021-09-09] MEDS: INSULIN LISPRO 100 UNIT/ML SUBCUT SCH ×2 (07:41→11:42)
[2021-09-09] MEDS ORDERED: propofoL 200 MG/20 ML VIAL IV ONE (08:08)
[2021-09-09] MEDS ORDERED: LIDOCAINE 2% 5 ML VIAL ONE (08:08)
[2021-09-09] MEDS ORDERED: ETOMIDATE 20 MG/10 ML VIAL IV ONE (08:08)
[2021-09-09 08:26] LABS: Hemoglobin A1 (Alkaline) 97.6 % (96.5-98.5); Hemoglobin A2 (Alkaline) 2.4 % (1.5-3.5)
[2021-09-09] MEDS: GABAPENTIN 300 MG CAPSULE PO SCH (10:26)
[2021-09-09] MEDS: CHOLECALCIFEROL 5,000 UNIT TABLET PO SCH (10:26)
[2021-09-09] MEDS: oxyCODONE/ACETAMINOPHEN 5-325 MG TABLET PO PRN (10:27)
[2021-09-09] MEDS: PANTOPRAZOLE 40 MG VIAL IV SCH (10:28)
[2021-09-09 11:29] VITALS: BP 105/72
[2021-09-09] MEDS ORDERED: MENTHOL/ZINC OXIDE OINT 71 GM JAR TOP SCH (12:00)
[2021-09-09] MEDS ORDERED: GLUCAGON 1 MG VIAL IM PRN (12:11)
[2021-09-09] MEDS ORDERED: DEXTROSE 50% 25 GM/50 ML VIAL IV PRN (12:11)
== END 2021-09-09 14:10 | disposition home or self-care (01) | DRG 378 ==
LOC: N.ED 10:27 → N.EDINP 12:49 → SUATTDRO 12:49 → N.3E 16:45
PROVIDERS: ADMIT Internal Medicine; ATTEND Hospitalist